=== PATIENT | female | born 2000 | race Caucasian/White ===

== ENCOUNTER 2018-07-11 13:43 | Emergency (ER) | payer BC, OTHER ==
[2018-07-11] MEDS ORDERED: cefTRIAXone SODIUM 1 GM VIAL IM ONE (14:00)
--- NOTE | 2018-07-11 14:03 | ED.PDOC ---
History of Present Illness - General Chief Complaint: Fever Time Seen by Provider: 07/11/18 14:00 Source: RN notes reviewed Exam Limitations: clinical condition - History of Present Illness Initial Comments: FEVER, SORE THROAT, CHILLS, MYALGIAS, MALAISE SINCE LAST NIGHT. SHE GOES TO [facility] AND IS HERE FOR THE HOLIDAYS. SHE VOICES NO ONE ELSE SICK AT THE HOUSE. Fever Severity/Quality: greater than 102 F Fever Therapy AREA COORDINATOR: Ibuprofen, Tylenol Associated Symptoms: headache, sore throat Review of Systems - Review of Systems Constitutional: States: chills, fever EENTM: States: throat swelling Respiratory: States: no symptoms reported Cardiology: States: no symptoms reported Gastrointestinal/Abdominal: States: no symptoms reported Genitourinary: States: no symptoms reported Musculoskeletal: States: muscle pain Skin: States: no symptoms reported Neurological: States: no symptoms reported Endocrine: States: no symptoms reported Hematologic/Lymphatic: States: no symptoms reported Past Medical History (General) - Patient Medical History Hx Seizures: No Hx Stroke: No Hx Dementia: No Hx Asthma: No Hx of COPD: No Hx Cardiac Disorders: No Hx Congestive Heart Failure: No Hx Pacemaker: No Hx Hypertension: No Hx Thyroid Disease: No Hx Diabetes: No Hx Gastroesophageal Reflux: No Hx Renal Disease: No Hx Cancer: No Hx of HIV: No Hx Hepatitis C: No Hx MRSA: No - Vaccination History Hx Tetanus, Diphtheria Vaccination: Yes Hx Influenza Vaccination: No Hx Pneumococcal Vaccination: No - Social History Hx Tobacco Use: No Hx Chewing Tobacco Use: No Hx Alcohol Use: No Hx Substance Use: No Hx Substance Use Treatment: No Hx Depression: No Hx Physical Abuse: No Hx Emotional Abuse: No Hx Suspected Abuse: No - Female History Hx Last Menstrual Period: 01/16/14 Patient : No Family Medical History - Family History Mother Family History: No Known Living Status: Still Living Physical Exam - Physical Exam General Appearance: No apparent distress, Well Developed, Well Groomed, Well Hydrated, Well Nourished Eye Exam: bilateral normal ENT Exam: pharyngeal erythema, tonsillar exudate Neck: non-tender, full range of motion, supple Respiratory: chest non-tender, lungs clear, normal breath sounds, no respiratory distress Cardiovascular/Chest: normal peripheral pulses, regular rate, rhythm, no edema, no gallop Gastrointestinal/Abdominal: normal bowel sounds, non tender, soft, no organomegaly, no pulsatile mass Extremity: normal range of motion, non-tender, normal inspection Skin Exam: normal color, warm/dry Lymphatic: no adenopathy Departure - Departure Clinical Impression: Exudative tonsillitis Time of Disposition: 14:04 Disposition: Discharge to Home or Self Care Condition: Good Departure Forms: ED Discharge - Pt. Copy, Patient Portal Self Enrollment Instructions: Strep Throat (DC) Diet: resume usual diet Referrals: Reinaldo Hatfield MD [Primary Care Provider] - 1-2 Weeks Prescriptions: Azithromycin [Zithromax Z-Brennen] 250 mg PO DAILY #6 tab Home Medications: Ambulatory Orders Sulfa/Trimeth 800/160 (Ds) Tab [Bactrim DS Tab] 1 ea PO DAILY #3 tab 10/23/15 Azithromycin [Zithromax Z-Brennen] 250 mg PO DAILY #6 tab 07/11/18
[2018-07-11 14:31] VITALS: BP 120/83; TEMP 101.4; O2SAT 97
== END 2018-07-11 14:25 | disposition home or self-care (01) ==
LOC: ER 13:43
DX: J03.90 Acute tonsillitis, unspecified (principal)

== ENCOUNTER 2018-09-26 17:43 | Emergency (ER) | payer BC ==
[2018-09-26] MEDS ORDERED: KETOROLAC TROMETHAMINE INJ 60 MG/2 ML VIAL IM ONE (17:54)
[2018-09-26] MEDS ORDERED: HYDROcodone 10MG/APAP 325MG 1 EA TAB PO ONE (17:55)
[2018-09-26 18:03] VITALS: O2SAT 99
--- NOTE | 2018-09-26 18:26 | RAD ---
EXAM: Hand,Left 3 Views (accession [id number]), Wrist,Left 3 Views (accession [id number]) CLINICAL INDICATION: Left hand and wrist pain COMPARISON: There is no previous study for comparison. FINDINGS:Three views of the left hand reveal no fracture. There are no radiopaque foreign bodies. There is no dislocation. No bony destruction is seen to suggest osteomyelitis. The osseous structures are intact and unremarkable. Three views of the left wrist reveal no fracture. The carpal bones and carpal interosseous spaces are intact. There are no radiopaque foreign bodies. The osseous structures are intact and unremarkable. IMPRESSION: Negative left wrist and hand radiographs. Electronically signed by: Jairo Ruiz MD 09/26/2018 6:23 PM CDT
--- NOTE | 2018-09-26 18:26 | RAD ---
EXAM: Hand,Left 3 Views (accession [id number]), Wrist,Left 3 Views (accession [id number]) CLINICAL INDICATION: Left hand and wrist pain COMPARISON: There is no previous study for comparison. FINDINGS:Three views of the left hand reveal no fracture. There are no radiopaque foreign bodies. There is no dislocation. No bony destruction is seen to suggest osteomyelitis. The osseous structures are intact and unremarkable. Three views of the left wrist reveal no fracture. The carpal bones and carpal interosseous spaces are intact. There are no radiopaque foreign bodies. The osseous structures are intact and unremarkable. IMPRESSION: Negative left wrist and hand radiographs. Electronically signed by: Jairo Ruiz MD 09/26/2018 6:23 PM CDT
--- NOTE | 2018-09-26 18:34 | ED.PDOC ---
History of Present Illness - General Chief Complaint: Trauma Stated Complaint: left arm injury Time Seen by Provider: 09/26/18 17:54 Source: patient Exam Limitations: other - PAIN - History of Present Illness Initial Comments: PT REPORTS INJURING HER LEFT HAND WHEN SHE ROPED UP HER HORSE WHICH THEN TOOK OFF RUNNING. PT STATES IT FORCED HER HAND THROUGH A STEEL FENCE. PT DENIES ANY OTHER INJURY DUE TO THE INCIDENT. Occurred: just prior to arrival Pain - Upper Extremity: severe: Hand, left Method of Injury: direct blow Improving Factors: immobilization, rest Worsening Factors: movement Allergies/Adverse Reactions: Allergies NO KNOWN ALLERGY Allergy (Verified 09/26/18 18:02) Home Medications: Ambulatory Orders Acetaminophen W/ Codeine [Tylenol W/ CODEINE #3] 1 ea PO Q4HR PRN #12 09/26/18 Amoxicillin & Pot Clavulanate [Augmentin] 875 mg PO BID #14 tab 09/26/18 Ibuprofen 800 mg PO Q8HR PRN #30 tab 09/26/18 Review of Systems - Review of Systems Constitutional: Denies: chills, fever Cardiology: Denies: chest pain, palpitations, syncope Gastrointestinal/Abdominal: Denies: nausea, vomiting Musculoskeletal: States: see HPI, joint pain, joint swelling, muscle pain Past Medical History (General) - Patient Medical History Hx Seizures: No Hx Stroke: No Hx Dementia: No Hx Asthma: No Hx of COPD: No Hx Cardiac Disorders: No Hx Congestive Heart Failure: No Hx Pacemaker: No Hx Hypertension: No Hx Thyroid Disease: No Hx Diabetes: No Hx Gastroesophageal Reflux: No Hx Renal Disease: No Hx Cancer: No Hx of HIV: No Hx Hepatitis C: No Hx MRSA: No Surgical History: no surgical history - Vaccination History Hx Tetanus, Diphtheria Vaccination: Yes Hx Influenza Vaccination: Yes Hx Pneumococcal Vaccination: Yes Immunizations Up to Date: Yes - Social History Hx Tobacco Use: No Hx Chewing Tobacco Use: No Hx Alcohol Use: No Hx Substance Use: No Hx Substance Use Treatment: No Hx Depression: No Hx Physical Abuse: No Hx Emotional Abuse: No Hx Suspected Abuse: No - Female History Patient is a Female of Child Bearing Age (10 -59 yrs old): Yes Hx Last Menstrual Period: 01/16/14 Patient : No Family Medical History - Family History Mother Family History: No Known Living Status: Still Living Physical Exam - Physical Exam General Appearance: Alert, Obvious distress, Well Developed, Well Groomed, Well Hydrated Eyes, Ears, Nose, Throat Exam: normal ENT inspection Neck: full range of motion, supple Cardiovascular/Respiratory: no respiratory distress Shoulder Exam: normal inspection, non-tender, no evidence of injury Elbow/Forearm Exam: normal inspection, non-tender, no evidence of injury Wrist Exam: normal inspection, non-tender, no evidence of injury Hand Exam: abrasions, bone tenderness, ecchymosis, laceration, soft tissue tenderness, swelling Neuro/Tendon: normal sensation, normal tendon functions, responds to pain Mental Status: alert, oriented x 3 Skin Exam: normal color, warm/dry Progress - Progress Progress: 09/26/18 18:51 PT REPORTS SOME IMPROVEMENT IN PAIN AFTER TORADOL AND NORCO. SHE IS ABLE TO EXTEND AND FLEX FINGERS. WILL SOAK AND CLEAN HAND. WILL PLAN TO SPLINT FOR IMMOBILIZATION. RECOMMENDED FOLLOW UP WITH [facility]THO IF PAIN PERSISTS OR PT HAS DIFFICULTY WITH FINGER MOVEMENTS ONCE SWELLING SUBSIDES. - EKG/XRAY/CT XRAY: hand - NO FRACTURE PER RAD Departure - Departure Clinical Impression: Contusion of left hand including fingers Disposition: Discharge to Home or Self Care Condition: Fair Departure Forms: ED Discharge - Pt. Copy, Patient Portal Self Enrollment Instructions: Contusion (DC), Skin Abrasions (DC) Diet: resume usual diet Referrals: Reinaldo Hatfield MD [Primary Care Provider] - 1-5 Days Dale Dang MD [Active Staff] - 1 Week Prescriptions: Acetaminophen W/ Codeine [Tylenol W/ CODEINE #3] 1 ea PO Q4HR PRN #12 PRN Reason: Pain Ibuprofen 800 mg PO Q8HR PRN #30 tab PRN Reason: Pain Amoxicillin & Pot Clavulanate [Augmentin] 875 mg PO BID #14 tab Home Medications: Ambulatory Orders Acetaminophen W/ Codeine [Tylenol W/ CODEINE #3] 1 ea PO Q4HR PRN #12 09/26/18 Amoxicillin & Pot Clavulanate [Augmentin] 875 mg PO BID #14 tab 09/26/18 Ibuprofen 800 mg PO Q8HR PRN #30 tab 09/26/18
[2018-09-26] MEDS ORDERED: CHLORHEXIDINE GLUCONATE 4 % 15 ML UD TOP ONE (18:45)
[2018-09-26] MEDS ORDERED: ceFAZolin SODIUM 1 GM VIAL IM ONE (18:49)
[2018-09-26] MEDS ORDERED: ACETAMINOPHEN W/COD #3 TAB (ER Disp) PO ONE (18:50)
[2018-09-26 19:16] VITALS: BP 120/59; TEMP 98.2
== END 2018-09-26 19:16 | disposition home or self-care (01) ==
LOC: ER 17:43
DX: S60.222A Contusion of left hand, initial encounter (principal); S60.00XA Contusion of unspecified finger without damage to nail, initial encounter; W22.09XA Striking against other stationary object, initial encounter; Y92.9 Unspecified place or not applicable
CPT/HCPCS: 73110; 73130; J0690; J1885